=== PATIENT | female | born 1970 | race Caucasian/White ===

== ENCOUNTER 2018-05-27 20:37 | Emergency (ER) | payer MEDICAID ==
[~2018-05-27] VITALS: Ht 170.2 cm; Wt 83.9 kg
[2018-05-27 20:45] VITALS: BP 105/46
--- NOTE | 2018-05-27 20:47 | NUR ---
PT AMBULATORY TO ER LOBBY W/ STEADY GAIT IN STABLE CONDITION.
--- NOTE | 2018-05-27 21:11 | NUR ---
PT PRESENTS TO ED AFTER GETTING COOKING OIL IN EYES. STATES BLURRED VISION TO RIGHT EYE WITH 7/10 PAIN. SEVERAL SMALL <1/2CM RED AREAS OVER CHEECKS. CONJUNTIVA OF RIGHT EYE REDNESS. SCLARA INTACT. PERRLA. OPON ED ADMISSION, FLUSHED EYES X10 MIN. PT STATES SHE CAN SEE BUT VISION BLURRY. EYE ASSESSMENT COMPLETED. ER MD MADE AWARE. CONTINUE TO MONITOR.
--- NOTE | 2018-05-27 21:11 | NUR ---
PT TAKEN TO BED 6
--- NOTE | 2018-05-27 22:00 | NUR ---
PA WITH PT
[2018-05-27] MEDS ORDERED: FLUORESCEIN OPTH STRIP 0.6 MG OP ONE (22:10)
[2018-05-27] MEDS ORDERED: TETRACAINE HCL/PF 0.5% OPTH 4 ML BTL OP ONE (22:10)
[2018-05-27] MEDS ORDERED: FLUORESCEIN OPTH STRIP 0.6 MG ONE (22:18)
[2018-05-27] MEDS ORDERED: TETRACAINE HCL/PF 0.5% OPTH 4 ML BTL ONE (22:18)
[2018-05-27 22:35] VITALS: BP 115/57
--- NOTE | 2018-05-27 22:35 | NUR ---
Patient discharged with v/s stable. Written and verbal after care instructions given and explained. Patient alert, oriented and verbalized understanding of instructions. Ambulatory with steady gait. All questions addressed prior to discharge. ID band removed. Patient advised to follow up with PMD. Rx of Erythromycin opthal dominique and Motrin given. Patient educated on indication of medication including possible reaction and side effects. Opportunity to ask questions provided and answered.
== END 2018-05-27 22:35 | disposition home or self-care (01) ==
LOC: MED 20:37
DX: T26.01XA Burn of right eyelid and periocular area, initial encounter (principal); X10.2XXA Contact with fats and cooking oils, initial encounter; Y93.G3 Activity, cooking and baking; Y92.090 Kitchen in other non-institutional residence as the place of occurrence of the external cause; Y99.8 Other external cause status
CPT/HCPCS: 99283